=== PATIENT | female | born 1950 | race Caucasian/White ===

== ENCOUNTER → 2018-05-04 | Day surgery (SDC) | payer MEDICARE, OTHER ==
[2018-05-03 12:17] LABS: BASOPHILS % 0.6 % (0.0-1.0); EOSINOPHILS # (AUTO) 0.2 (0.0-0.4); EOSINOPHILS % 2.4 % (0.0-6.0); HEMOGLOBIN 12.5 g/dL (12.0-16.0); LYMPHOCYTES # (AUTO) 2.8 (1.0-3.2); LYMPHOCYTES % 38.7 % (18.0-39.1); MEAN CORPUSCULAR HEMOGLOBIN 29.2 pg (28-32); MEAN CORPUSCULAR HGB CONC 32.9 g/dL (31-35); MEAN CORPUSCULAR VOLUME 88.8 fL (81-99); MONOCYTES # (AUTO) 0.4 (0.2-0.8); NEUTROPHILS # (AUTO) 3.8 (2.1-6.9); PLATELET COUNT 172 x10e3/uL (140-360); RED BLOOD COUNT 4.28 x10e6/uL (3.6-5.1); RED CELL DISTRIBUTION WIDTH 12.3 % (11.7-14.4)
[2018-05-03 13:58] LABS: ANION GAP 10.6 mmol/L (8-16); BLOOD UREA NITROGEN 16 mg/dL (7-26); BUN/CREATININE RATIO 23 (6-25); CALCIUM 9.5 mg/dL (8.4-10.2); CARBON DIOXIDE 30 mmol/L (22-29); CHLORIDE 104 mmol/L (98-107); CREATININE, SERUM 0.71 mg/dL (0.57-1.11); EST GLOMERULAR FILTRATION RATE > 60 ML/MIN (60-); GLUCOSE 95 mg/dL (74-118); POTASSIUM 3.6 mmol/L (3.5-5.1); SODIUM 141 mmol/L (136-145)
--- NOTE | 2018-05-03 14:50 | Diagnostic Imaging Report ---
EXAM: CHEST 2 VIEWS, PA and lateral DATE: 05/03/2018Time stamp on exam: 12:19 PM INDICATION: Preoperative COMPARISON: None FINDINGS: LINES/TUBES: None LUNGS: No consolidations or edema. PLEURA: No effusions or pneumothorax. HEART AND MEDIASTINUM: Normal size and contour. BONES AND SOFT TISSUES: No acute findings. IMPRESSION: No acute thoracic abnormality. Signed by: Dr. Vince Holbrook DO on 05/03/2018 2:47 PM
[~2018-05-04] MED LIST: ASPIRIN LOW-STR81 MG PO; BACITRACIN 50,000 UNIT VIAL ONE; BENAZEPRIL HCL10 MG PO; BUPIVACAINE HCL 0.5% INJ 30 ML VIAL INJ ONE; CEFAZOLIN SOD 1 GM/NS 50ML 50 ML IV ONE; COQ-10; DEXAMETHASONE SOD PHOS INJ 4 MG/ML VIAL ONE; KETOROLAC TROMETHAMINE 30 MG/ML VIAL ONE; LEVOTHYROXINE50 MCG PO; LIDOCAINE HCL 2% LOCAL INJ 5 ML SDV VIAL INJ ONE; LYRICA75 MG PO; MIDAZOLAM HCL 2 MG/2 ML VIAL ONE; ONDANSETRON HCL INJ 2MG/ML 2ML 2 MG/ML VIAL ONE; PROPOFOL IV EMULSION 10 MG/ML 20 ML VIAL ONE; SEVOFLURANE INHAL SOLN 250 ML PEN BTL ONE; VITAMIN D400 UNIT PO; VITAMIN E400 UNI1 PO; Z.0.LEVOTHYROXINE125 PO; Z.0.LUNESTA3 MG PO; Z.0.PRAVASTATIN SOD8 PO; [UNRECOGNIZED DRUG - OTHER]
--- OUTSIDE RECORDS SUMMARY | 2018-05-04 05:08 | XMS REPORT | Clinical Summary ---
Author Author [employer] Organization [employer] Address Unknown Phone Unavailable Care Team Providers Care Handicapper [employer]ness [employer] Name Role Phone Vipul Valentin MD PCP Allergies Comments Active Allergy Reactions Severity Noted Date Diarrhea' Amoxicillin 08/05/2016 Codeine Anaphylaxis High 03/19/2016 Nausea / vomiting Meperidine GI 03/19/2016 Intolerance Cant remember reaction Hydromorphone 08/05/2016 Itching Tramadol 08/05/2016 Nausea / vomiting Hydrocodone-Acetaminophen GI 03/19/2016 Intolerance Medications End Date Status Medication Sig Dispensed Refills Start Date Active pregabalin (LYRICA) 50 MG Take 50 mg by 0 capsule mouth nightly. 3 capsules Active benazepril-hydrochlorothi Take 0.5 0 azide (LOTENSIN HCT) tablets by 20-25 mg per tablet mouth daily. 1/2 tab Active levothyroxine (SYNTHROID, Take 100 mcg 0 LEVOXYL) 100 mcg tablet by mouth daily. Active pravastatin (PRAVACHOL) Take 40 mg by 0 40 MG tablet mouth nightly. Active aspirin (ECOTRIN) 81 MG Take 81 mg by 0 enteric coated tablet mouth nightly. Active vitamin E 400 UNIT Take 400 0 capsule Units by mouth nightly. Active biotin 10,000 mcg capsule Take by mouth 0 nightly. Active cholecalciferol, vitamin Take 1,000 0 D3, (VITAMIN D3) 1,000 Units by unit capsule mouth nightly. 11/15/2017 sulfamethoxazole-trimetho Take 1 tablet 14 tablet 0 prim (BACTRIM DS) 800-160 by mouth 2 8 mg per tablet (two) times a day for 7 days. Active Problems Not on file Encounters Care Team Description Date Type Specialty Aydin Barnard MD Paronychia of fifth toe of left foot (Primary Dx); Cellulitis of foot, left; Closed fracture of phalanx of left fifth toe, sequela 11/08/2017 Emergency Emergency Medicine after 05/03/2017 Social History Date Tobacco Use Types Packs/Day Years Used Never Smoker Smokeless Tobacco: Never Used Alcohol Use Drinks/Week oz/Week Comments No Sex Assigned at Date Recorded Not on file Industry Job Start Date Occupation Not on file Not on file Not on file Travel End Travel History Travel Start No recent travel history available. Last Filed Vital Signs Time Taken Vital Sign Reading 11/08/2017 11:58 AM CDT Blood Pressure 110/61 11/08/2017 11:58 AM CDT Pulse 72 11/08/2017 11:58 AM CDT Temperature 37.2 C (99 F) 11/08/2017 11:58 AM CDT Respiratory Rate 18 11/08/2017 11:58 AM CDT Oxygen Saturation 96% - Inhaled Oxygen - Concentration 11/08/2017 10:03 AM CDT Weight 81.4 kg (179 lb 8 oz) 11/08/2017 10:03 AM CDT Height 165.1 cm (5' 5") 11/08/2017 10:03 AM CDT Body Mass Index 29.87 Plan of Treatment Health Maintenance Due Date Last Done Comments BREAST CANCER SCREENING 2001 COLON CANCER SCREENING 2001 SHINGLES VACCINES (#1) 2001 65+ PNEUMOCOCCAL VACCINE 2016 09/25/2016 (2 of 2 - PPSV23) PNEUMOCOCCAL 2016 POLYSACCHARIDE VACCINE AGE 65 AND OVER INFLUENZA VACCINE 09/23/2017 11/20/2016, 11/01/2015, 11/17/2014 Procedures Comments Procedure Name Priority Date/Time Associated Diagnosis [place] DRAIN SKIN ABSCESS Routine 11/08/2017 SIMPLE 10:21 AM CDT after 05/03/2017 Results * INCISION AND DRAINAGE (11/08/2017 10:21 AM CDT) Narrative Performed At Aydin Barnard MD 11/08/2017 11:55 AM I&D/Aspiration/Amputation Performed by: AYDIN BARNARD Authorized by: AYDIN BARNARD Consent: Consent obtained:Verbal Consent given by:Patient Risks discussed:Bleeding, incomplete drainage and pain Location: Type:Abscess Location:Lower extremity Lower extremity location:L little toe Pre-procedure details: Skin preparation:Betadine Anesthesia (see MAR for exact dosages): Anesthesia method:Local infiltration Local anesthetic:Lidocaine 1% w/o epi Procedure details: Complexity:Simple Incision types:Stab incision Scalpel blade:11 Drainage:Purulent Drainage amount:Moderate Packing materials:None Post-procedure details: Patient tolerance of procedure:Tolerated well, no immediate complications Comments: Incision at cuticle with moderate amount of pus expressed. after 05/03/2017 Insurance Payer Benefit Subscriber ID Type Phone Address Plan / Group xxxxxxxxxxx FOR LIFE MEDICARE MEDICARE xxxxxxxxxx Medicare [place], [place] PART A AND B Advance Directives Patient has advance care planning documents on file. For more information, roel morales contact: Lars Carl [address] [place] [address]
--- OUTSIDE RECORDS SUMMARY | 2018-05-04 05:08 | XMS REPORT | Summary of Care ---
Author Organization Unknown Address Unknown Phone Unavailable Care Team Providers Care Spa Experience Coordinator Name Role Phone Kandi Valentin PCP Encounter [facility]) [id number] Date(s): 09/21/13 - 09/21/13 [facility] Outpatient Imaging [address] Discharge Disposition: Home Physician Attending: Jacinta Valentin MD Reason for Visit V76.12 - SCREEN MAMMOGRA Problem List No data available for this section Allergies, Adverse Reactions, Alerts Substance Reaction Severity Status acetaminophen-codeine Demerol Hydrochloride Injection Active Dilaudid Hydrochloride Ampules Allergy Unverified ALL PAIN MEDS Active Medications No data available for this section Medications Administered During Your Visit No data available for this section Immunizations No data available for this section Social History Social History Type Response
--- OUTSIDE RECORDS SUMMARY | 2018-05-04 05:08 | XMS REPORT | CCD ---
Author Author Auto Generated Organization [facility] Outpatient [facility] [place] Address Unknown Phone Unavailable Care Team Providers Care Track Laying Machine Operator Name Role Phone EVELIA Valentin CP Kandi Valentin PP Allergies, Adverse Reactions, Alerts Substance Reaction Status acetaminophen-codeine Demerol Hydrochloride Injection Active Dilaudid Hydrochloride Ampules Allergy Unverified ALL PAIN MEDS Active
--- OUTSIDE RECORDS SUMMARY | 2018-05-04 05:08 | XMS REPORT ---
Author [facility] Address Unknown Phone Unavailable Care Team Providers Care Drug Abuse Program Coordinator Name Role Phone Kandi DIAZ Unavailable Unavailable Problems This patient has no known problems. Allergies, Adverse Reactions, Alerts This patient has no known allergies or adverse reactions. Medications This patient has no known medications. Results Test Description Test Time Test Comments Text Results Atomic Results Result Comments CHEST 2 VIEWS 2018-05-03 14:46:00 [facility] [address] [place] [address] Patient Name: GERRI DORAN MR #: [id number] : 1950 Age/Sex: 68/F Req #: [id number] Adm Physician: Ordered by: MANDO DIAZ DPM Report #: [id number] Location: OR Room/Bed: Procedure: [id number] DX/CHEST 2 VIEWS Exam Date: 05/03/18 Exam Time: 1215 REPORT STATUS: Signed EXAM: CHEST 2 VIEWS, PA and lateral DATE: 05/03/2018Time stamp on exam: 12:19 PM INDICATION: Preoperative COMPARISON: None FINDINGS: LINES/TUBES: None LUNGS: No consolidations or edema. PLEURA: No effusions or pneumothorax. HEART AND MEDIASTINUM: Normal size and contour. BONES AND SOFT TISSUES: No acute findings. IMPRESSION: No acute thoracic abnormality. Signed by: Dr. Andriy Holbrook DO on 05/03/2018 2:47 PM Dictated By: ANDRIY HOLBROOK DO 1447 Transcribed By: CHELY on 05/03/18 1447 COPY TO: MANDO DIAZ DPM
--- OUTSIDE RECORDS SUMMARY | 2018-05-04 05:08 | XMS REPORT | Continuity of Care Document ---
Author Author [facility] Address Unknown Phone Unavailable Problems Problem Status Onset Date Classification Date Reported Comments Source Z12.31 - ENCNTR SCREEN MAMMOGRAM FOR MA Active 03/10/2017 ETHAN Kelley Medications Medication Details Route Status Patient Instructions Ordering Provider Order Date Source Allergies, Adverse Reactions, Alerts Substance Category Reaction Severity Reaction type Status Date Reported Comments Source acetaminophen-codeine Assertion Demerol Hydrochloride Injection, Dilaudid Hydrochloride Ampules Drug allergy Active [facility] [place] Allergy Unverified Assertion ALL PAIN MEDS Drug allergy Active [facility] [place] Immunizations Immunization Date Given Site Status Last Updated Comments Source Results Order Name Results Value Reference Range Date Interpretation Comments Source Breast Mammo Scrn SAMEER w joni incl CAD MA Breast Mammo Scrn SAMEER w joni incl CAD CT BILATERAL DIGITAL SCREENING MAMMOGRAM 3D/2D WITH CAD: 03/16/2017 CLINICAL: /Routine. Current study was evaluated with a Computer Aided Detection (CAD) system. COMPARISON:Comparison is made to exams dated: 09/21/2013 mammogram, 08/17/2012 mammogram - [facility], 03/11/2011 mammogram - [facility], and 03/01/2009 mammogram - [facility]. TECHNIQUE: Digital Breast Tomosynthesis was performed and utilized for Interpretation. Current study was also evaluated with a Computer Aided Detection (CAD) system. FINDINGS: There are scattered fibroglandular densities in both breasts. There are benign calcifications in both breasts. No significant masses, calcifications, or other findings are seen in either breast. There has been no significant interval change. IMPRESSION: BENIGN RECOMMENDATION:There is no mammographic evidence of malignancy. A 1 year screening mammogram is recommended.(03/17/2018) This exam was interpreted at [id number] for [place] 15. Professional services are provided by the [facility] Division of Diagnostic Imaging. Xena Sanabria M.D., ms/evelia:03/16/2017 12:41:35 Hvac Mechanic(s): Valeria Marquez [place] letter sent: BI-RADS 1/2 Mammogram BI-RADS: 2 Benign 03/16/2017 - - Read by: Xena Sanabria MD Dictated Date/time: 03/16/17 12:41 Electronically Signed by: Xena Sanabria MD 03/16/17 12:41 FINAL REPORT [facility] Bone Density DXA [employer] MA Bone Density DXA [employer] MA BONE DENSITY ASSESSMENT: 03/16/2017 CLINICAL DATA: Post menopausal and clinical risk for osteoporosis. Z78.0 asymptomatic postmenopausal state. /Z78.0 Asymptomatic Menopausal State RISK FACTORS: race. FINDINGS: Bone density evaluation was performed 03/16/2017 on the right femur neck using a Hologic unit. The BMD average for the exam is 0.601 g/cm2. The T-score is -2.20 and the Z-score is -0.70. This matches the World Health Organization's criteria for osteopenia and places the patient at a medium risk for fracture. An additional bone density evaluation was performed 03/16/2017 on the left femur neck using a Hologic unit. The BMD average for the exam is 0.631 g/cm2. The T- score is -2.00 and the Z-score is -0.40. This matches the World Health Organization's criteria for osteopenia and places the patient at a medium risk for fracture. An additional bone density evaluation was performed 03/16/2017 on the right total femur area using a Hologic unit. The BMD average for the exam is 0.816 g/cm2. The T-score is -1.00 and the Z-score is 0.20. This matches the World Health Organization's criteria for normal bone density and places the patient within normal limits of fracture risk. An additional bone density evaluation was performed 03/16/2017 on the left total femur area using a Hologic unit. The BMD average for the exam is 0.775 g/cm2. The T-score is -1.40 and the Z-score is -0.10. This matches the World Health Organization's criteria for osteopenia and places the patient at a medium risk for fracture. An additional bone density evaluation was performed 03/16/2017 on the AP L1-L4 region of spine using a Hologic unit. The BMD average for the exam is 0.895 g/cm2. The T-score is -1.40 and the Z-score is 0.40. This matches the World Health Organization's criteria for osteopenia and places the patient at a medium risk for fracture. FRAX 10 year probability of major osteoporotic fracture is 11% and hip fracture is 1.8%. IMPRESSION: OSTEOPENIA Patient is at medium risk for fracture. Patient consult w/primary care provider is recommended. This exam was interpreted at [id number] for JUAN LUIS [place] 15. Xena Sanabria M.D. ms/penrad:03/16/2017 12:26:03 Hvac Mechanic(s): Valeria Marquez 03/16/2017 - - Read by: Xena Sanabria MD Dictated Date/time: 03/16/17 12:26 Electronically Signed by: Xena Sanabria MD 03/16/17 12:26 FINAL REPORT [facility] [place] Digital Mammo Screening Sameer MA Digital Mammo Screening Sameer MA - DIGITAL MAMMO SCREENING SAMEER MA BILATERAL DIGITAL SCREENING MAMMOGRAM WITH CAD: 09/21/2013 CLINICAL: Routine. Current study was evaluated with a Computer Aided Detection (CAD) system. Comparison is made to exams dated: 08/17/2012 mammogram - [facility], 03/11/2011 mammogram - [facility], 03/01/2009 mammogram - [facility] and 04/29/2006 mammogram - [facility]. The tissue of both breasts is heterogeneously dense, which could obscure detection of small masses. There are benign calcifications and a density in both breasts. No significant masses, calcifications, or other findings are seen in either breast. There has been no significant interval change. IMPRESSION: BENIGN There is no mammographic evidence of malignancy. A screening mammogram in one year is recommended. Ashanti Beck M.D. ap/penrad:09/22/2013 11:16:26 Hvac Mechanic: [facility] This exam was dictated and interpreted by [id number] for [facility]. letter sent: Normal exam Mammogram BI-RADS: 2 Benign 09/21/2013 - - Read by: Ashanti Beck MD Dictated Date/time: 09/22/13 11:16 Electronically Signed by: Ashanti Beck MD 09/22/13 11:16 FINAL REPORT ETHAN [facility] Digital Mammo Screening Sameer MA Digital Mammo Screening Sameer MA - DIGITAL MAMMO SCREENING SAMEER MA BILATERAL DIGITAL SCREENING MAMMOGRAM WITH CAD: 08/17/2012 CLINICAL: Routine. Current study was evaluated with a Computer Aided Detection (CAD) system. Comparison is made to exams dated: 03/11/2011 mammogram - [facility], 03/01/2009 mammogram - [facility] and 04/29/2006 mammogram - [facility]. There are scattered fibroglandular elements in both breasts that could obscure a lesion on mammography. There are benign calcifications in both breasts. There also is a benign density in the right breast. No significant masses, calcifications, or other findings are seen in either breast. There has been no significant interval change. IMPRESSION: BENIGN There is no mammographic evidence of malignancy. A screening mammogram in one year is recommended. SUMMARY: SL: 15. Olivia ragsdale/evelia:08/20/2012 11:23:25 Hvac Mechanic: Essence Cantrell [facility] letter sent: Normal exam Mammogram BI-RADS: 2 Benign 08/17/2012 - - Read by: Olivia Garnica Dictated Date/time: 08/20/12 11:23 Electronically Signed by: Olivia Garnica MD 08/20/12 11:23 FINAL REPORT ROSENDO Kelley Vital Signs Vital Sign Value Date Comments Source Encounters Location Location Details Encounter Type Encounter Number Reason For Visit Attending Provider ADM Date DC Date Status Source [facility] Outpatient [facility] [place] [facility] [id number] Jacinta Valentin 09/21/2013 09/22/2013 ROSENDO Kelley Procedures Procedure Code Date Perfomer Comments Source
--- OUTSIDE RECORDS SUMMARY | 2018-05-04 05:09 | XMS REPORT ---
Author Organization Unknown Address [address] [place] [address] Phone [phone] Care Team Providers Care Tire Worker Name Role Phone CAYLA BOWIE 104 [phone] JOSE PARIS 119 [phone] Allergies Code Code System Name Reaction Severity Status Onset 2670 RxNorm Codeine Rash Active 08/09/2015 523723 RxNorm Demerol Rash Active 08/09/2015 586737 RxNorm Dilaudid Rash Active 08/09/2015 Hydrocodone Bitartrate Rash Active 08/09/2015 4337 RxNorm Fentanyl Itching Active 06/03/2016 Notes: Pain meds Medications Name Status Start Date Stop Date amlodipine 5 mg tablet Completed 12/31/2015 amoxicillin 500 mg capsule Completed 03/24/2016 amoxicillin 875 mg-potassium clavulanate 125 mg tablet Completed 03/24/2016 Aspir-81 Take 0.5 tablets every day Active Not available azithromycin 250 mg tablet Completed 05/13/2017 mpalxcwfagcxrij-jenbaaitazbjtob-DK 2 mg-30 mg-10 mg/5 mL syrup Completed 03/24/2016 ciprofloxacin 500 mg tablet Completed 03/24/2016 clarithromycin 500 mg tablet Completed 03/24/2016 clindamycin HCl 300 mg capsule Completed 09/25/2016 clotrimazole 1 % topical cream Completed 03/24/2016 Clotrimazole-3 2 % vaginal cream Insert 1 applicatorful every day by vaginal route for 3 days. Completed 06/24/2016 dexamethasone 4 mg/mL injection solution Take 1 mL by injection route. Completed 05/13/2017 Durezol 0.05 % eye drops Completed 06/24/2016 eszopiclone 2 mg tablet Take 1 tablet every day at bedtime as needed for insomnia Active Not available eszopiclone 3 mg tablet Completed 09/25/2016 fluconazole 100 mg tablet Completed 12/31/2015 fluconazole 150 mg tablet Completed 06/05/2016 flunisolide 25 mcg (0.025 %) nasal spray Completed 03/24/2016 fluticasone 50 mcg/actuation nasal spray,suspension Active Not available gabapentin 600 mg tablet Completed 12/31/2015 Kenalog 40 mg/mL suspension for injection Take 1 mL by injection route. Completed 05/13/2017 ketoconazole 2 % topical cream Active Not available ketorolac 0.5 % eye drops Completed 06/24/2016 ketorolac 10 mg tablet Completed 09/25/2016 levothyroxine 100 mcg tablet Active Not available levothyroxine 125 mcg tablet Completed 09/25/2016 lidocaine (PF) 10 mg/mL (1 %) injection solution 1 cc usedd for local infiltration for wart destruciton. Completed 02/06/2017 Lotensin HCT 20 mg-25 mg tablet Active Not available Lyrica 50 mg capsule Active Not available minoxidil 2.5 mg tablet Completed 12/31/2015 mometasone 50 mcg/actuation nasal spray Completed 09/25/2016 montelukast 10 mg tablet Completed 05/13/2017 neomycin 3.5 mg/g-polymyxin B 10,000 unit/g-dexameth 0.1 % eye oint Completed 06/24/2016 nitrofurantoin monohydrate/macrocrystals 100 mg capsule Completed 09/25/2016 omeprazole 20 mg capsule,delayed release Completed 03/24/2016 phenazopyridine 100 mg tablet Completed 12/31/2015 phenazopyridine 200 mg tablet Completed 11/20/2016 pravastatin 40 mg tablet Active Not available prednisone 10 mg tablet Completed 03/24/2016 sulfamethoxazole 800 mg-trimethoprim 160 mg tablet Completed 11/20/2016 Suprep Bowel Prep Kit 17.5 gram-3.13 gram-1.6 gram oral solution Completed 12/31/2015 tramadol 50 mg tablet Completed 09/25/2016 trazodone 50 mg tablet Completed 09/25/2016 valacyclovir 1 gram tablet TAKE 1 TABLET TWICE A DAY FOR 5 DAYS Active Not available Zylet 0.3 %-0.5 % eye drops,suspension Completed 05/13/2017 Problems Name Status Onset Date Source Herpes Simplex Unknown 12/08/2014 History Hypothyroidism Active 12/08/2014 History Pure Hyperglyceridemia Unknown 12/08/2014 History Hypertensive Disorder Active 12/08/2014 History Disorder of Anal Region Unknown 12/08/2014 History Insomnia Active 04/05/2015 History Thyroid Nodule Active 03/29/2016 Mixed Hyperlipidemia Active 05/13/2017 Idiopathic Peripheral Neuropathy Active 05/13/2017 Procedures Date Name Performed by 08/11/2016 Nasal Surgery Procedure Information not available Hysterectomy (Total) Information not available 02/12/2016 US, Neck Vipul Valentin [address] [place] [address] (Work [address]) 02/29/2016 US, Neck Vipul Valentin [address] [facility] [address] [place] [address] (Work Place) 09/25/2016 Bone Density, Dual Photon Absorptiometry [facility] ([facility]) [address] [place] [address] (Work Place) 09/25/2016 MAMMO, Screening, Digital, Bilateral [facility] ([facility]) [address] [place] [address] (Work Place) 02/06/2017 MAMMO, Screening, Bilateral [facility] ([facility]) [address] [place] [address] (Work Place) 02/06/2017 Bone Density [facility] ([facility]) [address] [place] [address] (Work Place) 03/12/2017 Electrocardiogram [facility] [address] [facility] [address] [place] [address] (Work Place) 03/12/2017 Bone Density, Dual Photon Absorptiometry [facility] [address] [address] [place] [address] (Work Place) 03/12/2017 MAMMO, Screening, Bilateral [facility] [address] [address] [place] [address] (Work Place) Notes: Patient indicated no previous surgeries on (04/23/2017) Lab Results Date Name Specimen Result Interpretation Description Value Range Status Address 11/10/2016 Culture, Urine ABNORMAL Culture, Urine, Routine see note [facility]: [address] [address], [place] 09/25/2016 Hepatitis C Virus RNA, Quant, PCR, Serum or Plasma Normal Hepatitis C Antibody non-reactive non-reactive [facility] [address] [facility] [facility] Signal to Cut-off 0.03 <1.00 Final [facility] [address] [facility] [facility] 09/25/2016 CBC W/ Auto Diff Wbc 6.90 x10*3/L 3.98-10.04 x10*3/L Final [facility] [address] [facility] [facility] Rbc 4.27 10*12/L 3.93-5.22 10*12/L Final [facility] [address] [facility] [facility] Hemoglobin 12.60 g/dL 11.20-15.70 g/dL Final [facility]: [address] [facility] [facility] Hematocrit 38.0 % 34.1-44.9 % Final [facility]: [address] [facility] [facility] Mcv 89.0 fL 80.0-100.0 fL Final [facility]: [address] [facility] [facility] Mch 29.5 pg 25.6-32.2 pg Final [facility]: [address] [facility] [facility] Mchc 33.2 g/dL 32.2-35.5 g/dL Final [facility]: [address] [facility] [facility] RDW-SD 38.8 fL 36.4-46.3 fL Final [facility]: [address] [facility] [facility] Platelet Count 189.0 k/uL 182.0-369.0 k/uL Final [facility]: [address] [facility] High Mpv 11.9 fL 7.5-11.5 fL Final [facility]: [address] [facility] [facility] Neut% 45.1 % 34.0-71.1 % Final [facility]: [address] [facility] [facility] Lymph% 45.9 % 19.3-51.7 % Final [facility]: [address] [facility] Mon% 6.5 % 4.7-12.5 % Final [facility]: [address] [place] [address] Eos% 1.9 % 0.7-5.8 % Final [facility]: [address] [place] [address] Baso% 0.6 % 0.1-1.2 % Final [facility]: [address] [place] Neut# 3.1 x10*3/L 1.6-6.1 x10*3/L Final [facility]: [address] [place] [address] Lymph# 3.2 x10*3/L 1.2-3.7 x10*3/L Final [facility]: [address] [place] [address], [place] Mon# 0.5 x10*3/L 0.2-0.9 x10*3/L Final [facility]: [address] Eos# 0.13 x10*3/L 0.04-0.36 x10*3/L Final [facility]: [address] [place] [address] Baso# 0.04 x10*3/L 0.01-0.08 x10*3/L Final [facility]: [address] [place] [address] 09/25/2016 CMP, Serum or Plasma Alt 16 U/L 0-55 U/L Final [facility]: [address] Ast 18 U/L 5-34 U/L Final [facility]: [address] Bun 14.9 mg/dL 9.8-20.1 mg/dL Final [facility]: [address] Alk Phos 79 unit/L 40-150 unit/L Final [facility]: [address] High Glucose 101 mg/dL 70-99 mg/dL Final [facility]: [address] Albumin 4.1 g/dL 3.5-5.0 g/dL Final [facility]: [address] Creatinine 0.76 mg/dL 0.57-1.11 mg/dL Final [facility]: [address] eGFR Non- >60 mL/min/1.73m2 >60 mL/min/1.73m2 Final [facility]: [address] Total Bilirubin 0.4 mg/dL 0.2-1.2 mg/dL Final [facility]: [address] eGFR - >60 mL/min/1.73m2 >60 mL/min/1.73m2 Final [facility]: [address] [place] [address], [place] Sodium 145 mEq/L 136-145 mEq/L Final [facility]: [address] Potassium 3.9 mEq/L 3.5-5.1 mEq/L Final [facility]: [address] [address], [place] Chloride 105 mmol/L 98-107 mmol/L Final [facility]: [address] [address], [place] Total Protein 7.3 g/dL 6.4-8.3 g/dL Final [facility]: [address] Calcium 9.7 mg/dL 8.4-10.2 mg/dL Final [facility]: [address] Co2 30.8 mmol/L 23.0-31.0 mmol/L Final [facility]: [address] Anion Gap 9 calc Final [facility]: [address] 09/25/2016 Lipid Panel, Serum Hdl 54 mg/dL 40-60 mg/dL Final [facility]: [address] Triglyceride 102 mg/dL 0-149 mg/dL Final [facility]: [address] VLDL Calc. 20 mg/dL Final [facility]: [address] cholesterol/HDL Ratio 3 mg/dL Final [facility]: [address] non-HDL Cholesterol Calc. 94 mg/dL 0-160 mg/dL Final [facility]: [address] Cholesterol 148 mg/dL 0-199 mg/dL Final [facility]: [address] LDL Calc. 74 mg/dL 0-130 mg/dL Final [facility]: [address] 09/25/2016 T4, Total, Serum T4 Total 8.12 ug/dL 4.87-11.72 ug/dL Final [facility]: [address] [place] [address], [place] 09/25/2016 TSH, Serum or Plasma Tsh 0.586 uIU/mL 0.350-4.940 uIU/mL Final [facility]: [address] [place] [address], [place] 09/25/2016 Culture, Urine Culture, Urine, Routine see note Final [facility]: [address] 06/24/2016 CMP, Serum or Plasma Alt 16 U/L 0-55 U/L Final [facility]: [address] Ast 18 U/L 5-34 U/L Final [facility]: [address] Bun 18 mg/dL 10-20 mg/dL Final [facility]: [address] Alk Phos 84 unit/L 40-150 unit/L Final [facility]: [address] High Glucose 134 mg/dL 70-99 mg/dL Final [facility]: [address] Albumin 4.2 g/dL 3.5-5.0 g/dL Final [facility]: [address] Creatinine 0.77 mg/dL 0.57-1.11 mg/dL Final [facility]: [address] eGFR Non- >60 mL/min/1.73m2 >60 mL/min/1.73m2 Final [facility]: [address] Total Bilirubin 0.4 mg/dL 0.2-1.2 mg/dL Final [facility]: [address] eGFR - >60 mL/min/1.73m2 >60 mL/min/1.73m2 Final [facility]: [address] Sodium 144 mEq/L 136-145 mEq/L Final [facility]: [address] Potassium 4.9 mEq/L 3.5-5.1 mEq/L Final [facility]: [address] Chloride 106 mmol/L 98-107 mmol/L Final [facility]: [address] Total Protein 7.3 g/dL 6.4-8.3 g/dL Final [facility]: [address] Calcium 10.0 mg/dL 8.4-10.2 mg/dL Final [facility]: [address] Co2 28.3 mmol/L 23.0-31.0 mmol/L Final [facility]: [address] Anion Gap 10 calc Final [facility]: [address] [place] [address], [place] 06/24/2016 Lipid Panel, Serum Hdl 58 mg/dL 40-60 mg/dL Final [facility]: [address] Triglyceride 130 mg/dL 0-149 mg/dL Final [facility]: [address] VLDL Calc. 26 mg/dL Final [facility]: [address] cholesterol/HDL Ratio 3 mg/dL Final [facility]: [address] non-HDL Cholesterol Calc. 96 mg/dL 0-160 mg/dL Final [facility]: [address] Cholesterol 154 mg/dL 0-199 mg/dL Final [facility]: [address] LDL Calc. 70 mg/dL 0-130 mg/dL Final [facility]: [address] [place] [address], [place] 06/24/2016 T4, Total, Serum T4 Total 7.73 ug/dL 4.87-11.72 ug/dL Final [facility]: [address] 06/24/2016 TSH, Serum or Plasma Low Tsh 0.175 uIU/mL 0.350-4.940 uIU/mL Final [facility]: [address] [place] [address], [place] 05/13/2016 T4, Total, Serum Normal T4 (Thyroxine), Total 9.8 mcg/dL 4.5-12.0 mcg/dL Final [facility] Lab: [address] 05/13/2016 TSH, Serum or Plasma Low Tsh 0.11 mIU/L 0.40-4.50 mIU/L Final [facility] Lab: [address] 02/12/2016 H Pylori Urea Breath Test, Co2 Infrared ABNORMAL Helicobacter Pylori, Urea Breath Test detected not detected Final [facility] Lab: [address] [facility], [place] Rapid Flu (A+B) Type Flu a negative [facility]: [address], [place] Type Flu B negative [facility]: [address], [place] Electrocardiogram No observation recorded. [facility]: [address] [facility] [address], [place] Urinalysis, Dipstick Color Color light yellow [facility]: [address] [facility] [address], [place] Color Appearance clear [facility]: [address] [facility] [address], [place] Color Glucose negative [facility]: [address] [facility] [address], [place] Color Bilirubin negative [facility]: [address] [facility] [address] [place] Color Ketones trace [facility]: [address] [facility] [address] [place] Color Specific [place] 1.025 [facility]: [address] [facility] [address] [place] Color Blood moderate [facility]: [address] [facility] [address] [place] Color PH 6.0 [facility]: [address] [facility] [address] [place] Color Protein 30 [facility]: [address] [facility] [address] [place] Color Urobilinogen 2 [facility]: [address] [facility] [address], [place] Color Nitrites positive [facility]: [address] [facility] [address], [place] Color Leukocytes large [facility]: [address] [facility] [address], [place] Albumin:creatinine Ratio, Urine Type Urine Microlalbumin 10 mg/L [facility]: [address] [facility] [address], [place] Type Urine Creatinine 100 mg/dL [facility]: [address] [facility] [address], [place] Type A:C Ratio <30 mg/g (Normal) [facility]: [address] [facility] [address], [place] Urinalysis, Dipstick Color Color yellow [facility]: [address] [facility] [address], [place] Color Appearance clear [facility]: [address] [facility] [address], [place] Color Glucose negative [facility]: [address] [facility] [address], [place] Color Bilirubin negative [facility]: [address] [facility] [address], [place] Color Ketones negative [facility]: [address] [facility] [address], [place] Color Specific [place] 1.020 [facility]: [address] [facility] [address], [place] Color Blood negative [facility]: [address] [facility] [address], [place] Color PH 5.0 [facility]: [address] [facility] [address], [place] Color Protein negative [facility]: [address] [facility] [address], [place] Color Urobilinogen 1 [facility]: [address] [facility] [address], [place] Color Nitrites negative [facility]: [address] [facility] [address], [place] Color Leukocytes trace [facility]: [address] [facility] [address], [place] Past Encounters 05/13/2017 Primary Insomnia; Herpes Labialis; Mixed Hyperlipidemia; Hypothyroidism; Hypertensive Disorder; Idiopathic Peripheral Neuropathy Vipul Valentin MD: [address] [address], [place]. 04/23/2017 Bronchitis; Sinusitis; Generalized Aches and Pains Lissett Ingram MD: [address] [facility] [address] [address], Ph. 03/12/2017 Chest Pain; Postmenopausal State; Screening Mammography SIOBHAN Correa: [address] [address], [place]. 02/06/2017 Pure Hypercholesterolemia; Hypertensive Disorder; Hypothyroidism; Primary Insomnia; Mononeuropathy; Herpes Labialis; Allergic Rhinitis; Dermatophytosis; Screening Mammography; Screening for Osteoporosis SIOBHAN Correa: [address] [address], [place]. 11/20/2016 Pure Hypercholesterolemia; Hypothyroidism; Inflamed Seborrheic Keratosis; Primary Insomnia; Herpes Labialis; Immunization SIOBHAN Correa: [address] [facility], [address] [address], [place]. 11/10/2016 Dysuria; Acute Urinary Tract Infection JEF Parker: [address] [address], [place]. 09/29/2016 Verruca Vulgaris Vipul Valentin MD: [address] [place] [address], Ph. 09/25/2016 Adult Health Examination; Body Mass Index 25-29 - Overweight; Hypertensive Disorder; Pure Hypercholesterolemia; Pure Hyperglyceridemia; Hypothyroidism; Thyroid Nodule; Mononeuropathy; Primary Insomnia; Advance Directive Discussed with Patient; Screening for Malignant Neoplasm of Colon; Screening Mammography; Postmenopausal State; Immunization; Viral Screening; Increased Frequency of Urination SIOBHAN Correa: [address] [place] [address], Ph. 07/14/2016 Insomnia; Hypothyroidism SIOBHAN Correa: [address] [place] [address], Ph. 06/24/2016 Chest Pain; Hypertensive Disorder; Pure Hyperglyceridemia; Hypothyroidism JEF Parker: [address] [place] [address], Ph. 06/05/2016 Acute Frontal Sinusitis; Allergic Rhinitis SIOBHAN Correa: [address] [place] [address], Ph. 05/13/2016 Hypothyroidism; Thyroid Nodule; Allergic Rhinitis; Insomnia SIOBHAN Correa: [address] [place] [address], Ph. 03/31/2016 Candidiasis of Vagina; Insomnia SIOBHAN Correa: [address] [place] [address], Ph. 03/24/2016 Thyroid Nodule; Actinic Keratosis SIOBHAN Correa: [address] [place] [address], Ph. 02/27/2016 Mass of Neck; Mass of Soft Tissue Vipul Valentin MD: [address] [place] [address], Ph. 02/12/2016 Acute Left Otitis Media; Cough; Gastroesophageal Reflux Disease without Esophagitis; Mass of Soft Tissue [facility]: [address] [facility] [address], [place] [address], Ph. 12/31/2015 Insomnia Leeann EllingtonANDRE[facility]: [address] [facility], [facility] [address], [place] [address], Ph. Social History Smoking Status Never Smoker Vaccine List Vaccine Type influenza, high dose seasonal 11/20/20160.5 mL influenza, injectable, quadrivalent 11/01/2015 influenza, seasonal, injectable 11/17/2014 pneumococcal conjugate PCV 13 09/25/20160.5 mL Notes: 11/17/2014: Depo-Medrol (Methyprednisolone) (01/13/2014) Lidocaine 1% (01/13/2014) Plan of Care Patient Instructions steroid injection today use over the counter mucinex DM increase oral fluid intake, hand washing, warm salt water gargles Meds were sent to your pharmacy today, please call if any issues call/email if you are not feeling better within the next 1-2 weeks It was good to see you in the office today for your Medicare Annual Wellness Visit. You have been provided some information on healthy nutrition, including a diet rich in fruits and vegetables, minimizing simple carbohydrates, salt, and saturated fats. I want to encourage regular cardiovascular exercise such as walking at least 30 minutes daily, 5 times per week. Please remember to schedule any preventive health measures that we talked about today. You have also been provided education on fall prevention and community- based lifestyle interventions to help reduce health risks and promote healthy living in your [employer] folder. Screening Recommendations 1. Vaccines Pneumococcal: discussed today and information sent with patient in their [employer] health folder Influenza: discussed today and information sent with patient in their [place] [employer] health folder Shingles: discussed today and information sent with patient in their [place] [employer] health folder Tetanus: discussed today and information sent with patient in their [place] [facility] health folder 2. Mammography Screening: discussed today and information sent with patient in their [place] [facility] health folder 3. Colorectal cancer Screening Colonoscopy: discussed today and information sent with patient in their [place] [facility] health folder Fecal Occult Blood: discussed today and information sent with patient in their [employer] health folder 4. Bone Mass Measurement: discussed today 5. Pap test / Pelvic Exam Screening: discussed today 6. Eye Exam Screening: discussed today 7. Cholesterol Screening: discussed today 8. Diabetes Screening: discussed today Increase PO fluids. Complete all antibiotics as prescribed. Call or RTC for worsening of symptoms or no improvement in 2-3 days. Increase PO fluids. Complete all antibiotics as prescribed. Call or RTC for worsening of symptoms or no improvement in 2-3 days. Reminders Provider Appointments None recorded. Lab None recorded. Referral None recorded. Procedures None recorded. Surgeries None recorded. Imaging None recorded. Vitals 05/13/2017 03:45PM Est Patient Height Weight BMI Blood Pressure 5 ft 5.5 in 182 lbs 29.8 kg/m2 134/81 mm[Hg] 04/23/2017 12:00PM Est Patient Height Weight BMI Blood Pressure 5 ft 5.5 in 180.8 lbs 29.6 kg/m2 130/82 mm[Hg] 03/12/2017 11:00AM Work In Same Day Height Weight BMI Blood Pressure 5 ft 5.5 in 182.6 lbs 29.9 kg/m2 127/80 mm[Hg] 02/06/2017 01:15PM Est Patient Height Weight BMI Blood Pressure 5 ft 5.5 in 183.6 lbs 30.1 kg/m2 119/76 mm[Hg] 11/20/2016 01:15PM Est Patient Height Weight BMI Blood Pressure 5 ft 5.5 in 183.6 lbs 30.1 kg/m2 117/72 mm[Hg] 11/10/2016 02:30PM Est Patient Height Weight BMI Blood Pressure 5 ft 5.5 in 183 lbs 30 kg/m2 120/77 mm[Hg] 09/29/2016 04:15PM Est Patient Height Weight BMI Blood Pressure 5 ft 5.5 in 185 lbs 30.3 kg/m2 119/71 mm[Hg] 09/25/2016 02:00PM AWV Height Weight BMI Blood Pressure 5 ft 6 in 184 lbs 29.7 kg/m2 127/86 mm[Hg] 07/14/2016 02:30PM Est Patient Height Weight BMI Blood Pressure 5 ft 6 in 181.2 lbs 29.2 kg/m2 126/76 mm[Hg] 06/24/2016 03:00PM Est Patient Height Weight BMI Blood Pressure 5 ft 6 in 182 lbs 29.4 kg/m2 152/81 mm[Hg] 06/05/2016 02:30PM Est Patient Height Weight BMI Blood Pressure 5 ft 6 in 182.4 lbs 29.4 kg/m2 133/76 mm[Hg] 05/13/2016 02:45PM Est Patient Height Weight BMI Blood Pressure 5 ft 6 in 179 lbs 28.9 kg/m2 134/84 mm[Hg] 03/31/2016 01:45PM [facility] Height Weight BMI Blood Pressure 5 ft 6 in 180 lbs 29.1 kg/m2 125/79 mm[Hg] 03/24/2016 01:45PM Est Patient Height Weight BMI Blood Pressure 5 ft 6 in 182.8 lbs 29.5 kg/m2 121/67 mm[Hg] 02/12/2016 09:15AM Est Patient Height Weight BMI Blood Pressure 5 ft 6 in 178.2 lbs 28.8 kg/m2 120/72 mm[Hg] 12/31/2015 01:30PM Est Patient Height Weight BMI Blood Pressure 5 ft 6 in 181.2 lbs 29.2 kg/m2 127/75 mm[Hg] 08/09/2015 Height Weight BMI Blood Pressure 5 ft 6 in 180.8 lbs 29.18 kg/m2 119/67 mm[Hg] 07/16/2015 Height Weight BMI Blood Pressure 5 ft 6 in 180 lbs 29.05 kg/m2 122/74 mm[Hg] 07/12/2015 Height Weight BMI Blood Pressure 5 ft 6 in 181 lbs 29.21 kg/m2 119/65 mm[Hg] 04/19/2015 Height Weight BMI Blood Pressure 5 ft 6 in 180.8 lbs 29.18 kg/m2 121/68 mm[Hg] 04/05/2015 Height Weight BMI Blood Pressure 5 ft 6 in 179.2 lbs 28.92 kg/m2 110/70 mm[Hg] 03/07/2015 Height Weight BMI Blood Pressure 5 ft 6 in 183.6 lbs 29.63 kg/m2 123/79 mm[Hg] 02/05/2015 Height Weight BMI Blood Pressure 5 ft 6 in 182.4 lbs 29.44 kg/m2 130/76 mm[Hg] 01/12/2015 Height Weight BMI Blood Pressure 5 ft 6 in 183 lbs 29.53 kg/m2 118/70 mm[Hg] 12/08/2014 Height Weight BMI Blood Pressure 5 ft 6 in 179.4 lbs 28.95 kg/m2 128/70 mm[Hg] 12/01/2014 Height Weight Blood Pressure 5 ft 6 in 179.8 lbs 122/74 mm[Hg] 12/01/2014 BMI 29.02 kg/m2 11/17/2014 Height Weight BMI Blood Pressure 5 ft 6 in 180.4 lbs 29.11 kg/m2 126/68 mm[Hg] 09/13/2014 Height Weight BMI Blood Pressure 5 ft 6 in 180.6 lbs 29.15 kg/m2 124/71 mm[Hg] 08/03/2014 Height Weight BMI Blood Pressure 5 ft 6 in 181.8 lbs 29.34 kg/m2 116/70 mm[Hg] 06/19/2014 Height Weight BMI Blood Pressure 5 ft 6 in 181.4 lbs 29.28 kg/m2 142/70 mm[Hg] 06/14/2014 Height Weight BMI Blood Pressure 5 ft 6 in 181 lbs 29.21 kg/m2 118/80 mm[Hg] 05/22/2014 Height Weight BMI Blood Pressure 5 ft 6 in 179 lbs 28.89 kg/m2 140/80 mm[Hg] 05/04/2014 Height Weight BMI Blood Pressure 5 ft 6 in 187.2 lbs 30.21 kg/m2 120/70 mm[Hg] 03/17/2014 Height Weight BMI Blood Pressure 5 ft 6 in 185 lbs 29.86 kg/m2 130/70 mm[Hg] 03/09/2014 Height BMI 5 ft 6 in 29.82 kg/m2 03/09/2014 Weight Blood Pressure 184.8 lbs 120/80 mm[Hg] 03/06/2014 Height Weight BMI Blood Pressure 5 ft 6 in 181.2 lbs 29.24 kg/m2 120/70 mm[Hg] 01/24/2014 Blood Pressure 124/80 mm[Hg] 01/24/2014 Height Weight BMI 5 ft 6 in 181.6 lbs 29.31 kg/m2 01/13/2014 Height Weight BMI Blood Pressure 5 ft 6 in 184 lbs 29.70 kg/m2 120/80 mm[Hg] 11/25/2013 Height Weight BMI Blood Pressure 5 ft 6 in 185.9 lbs 30.00 kg/m2 120/80 mm[Hg] 11/08/2013 Height Weight BMI Blood Pressure 5 ft 6 in 183.8 lbs 29.66 kg/m2 120/75 mm[Hg] 10/03/2013 Height Weight 5 ft 6 in 182.8 lbs 09/12/2013 Height Weight 5 ft 6 in 183.2 lbs 06/24/2013 Height Weight 5 ft 6 in 184.4 lbs 06/21/2013 Height Weight 5 ft 6 in 182 lbs 06/06/2013 Height Weight 5 ft 6 in 184 lbs 05/31/2013 Height Weight 5 ft 6 in 185.4 lbs 12/13/2012 Height Weight 5 ft 6 in 186.6 lbs 11/17/2012 Height Weight 5 ft 6 in 182.8 lbs 09/27/2012 Height Weight 5 ft 6 in 184.6 lbs 06/07/2012 Height Weight 5 ft 6 in 180.4 lbs 05/31/2012 Height Weight 5 ft 6 in 182.8 lbs 04/27/2012 Height Weight 5 ft 6 in 183.2 lbs 03/05/2012 Height Weight 5 ft 6 in 182.6 lbs 10/23/2011 Height Weight 5 ft 6 in 177.6 lbs 09/15/2011 Height Weight 5 ft 6 in 177.6 lbs 09/02/2011 Height Weight 5 ft 6 in 182.4 lbs 08/19/2011 Height Weight 5 ft 6 in 175 lbs 07/31/2011 Height Weight 5 ft 6 in 178.2 lbs 06/09/2011 Height Weight 5 ft 6 in 177.6 lbs 04/22/2011 Height Weight 5 ft 6 in 182.8 lbs 03/28/2011 Height Weight 5 ft 6 in 180.4 lbs 12/19/2010 Height Weight 5 ft 6 in 180.4 lbs 10/30/2010 Height Weight 5 ft 6 in 182.4 lbs 06/26/2010 Height 5 ft 6 in 06/26/2010 Weight 178.2 lbs 05/24/2010 Height Weight 5 ft 6 in 178 lbs 03/01/2010 Height Weight 5 ft 6 in 166.8 lbs 02/01/2010 Height Weight 5 ft 6 in 173.4 lbs 08/21/2009 Weight 169 lbs 08/02/2009 Weight 168.4 lbs 03/01/2009 Weight 179 lbs 11/21/2008 Weight 170 lbs 11/02/2008 Weight 166 lbs 08/01/2008 Height 5 ft 6 in 08/01/2008 Weight 165 lbs 03/17/2008 Weight 184 lbs 2008 Weight 182.5 lbs 03/10/2008 Weight 182.8 lbs 01/25/2008 Weight 173.1 lbs 12/31/2007 Weight 173.4 lbs 10/15/2007 Weight 176 lbs 05/20/2007 Weight 185.2 lbs 10/29/2006 Weight 182.7 lbs 08/10/2006 Weight 172.6 lbs 04/24/2006 Height Weight 5 ft 6 in 180 lbs 02/27/2006 Weight 193.7 lbs 09/16/2005 Height Weight 5 ft 6 in 76 lbs 08/22/2005 Height Weight 5 ft 6 in 179 lbs 05/30/2005 Height Weight 5 ft 6 in 175 lbs 05/12/2005 Height Weight 5 ft 6 in 174 lbs 10/18/2004 Height Weight 5 ft 6 in 178 lbs 07/25/2004 Height Weight 5 ft 6 in 174 lbs 04/22/2004 Height Weight 5 ft 6 in 171 lbs 11/08/2003 Weight 173 lbs
[2018-05-04 09:00] VITALS: BP 115/59
--- NOTE | 2018-05-04 16:15 | Operative Report ---
DATE OF PROCEDURE: 05/04/2018 SURGEON: Diana Harrington DPM PREOPERATIVE DIAGNOSIS: Left hallux rigidus. POSTOPERATIVE DIAGNOSIS: Left hallux rigidus. PLANNED PROCEDURE: Left Doyle bunionectomy with first metatarsophalangeal joint implant, left. ANESTHESIA: General with a postoperative block consisting of 20 mL of 0.25% Marcaine plain. HEMOSTASIS: Pneumatic thigh tourniquet set at 350 mmHg for a total time of approximately 40 minutes. MATERIALS: 1 size 2 bone silastic implant, 2-0 Vicryl, 3-0 Vicryl, 4-0 Monocryl. ESTIMATED BLOOD LOSS: Less than 10 mL. PATHOLOGY: None. PROCEDURE NOTE: The patient was seen in the preoperative waiting room, where the correct procedure and side was identified. The patient was brought to the operating room, placed on the operating table in supine position. General anesthesia was initiated. At this time, a well-padded pneumatic tourniquet was placed about the patient's left thigh. The left foot, ankle, and leg were then scrubbed, prepped and draped in the usual aseptic manner. The right foot, ankle, and leg were exsanguinated with an Esmarch bandage and the pneumatic thigh tourniquet was inflated to 350 mmHg for a total time of approximately 40 minutes. Attention was directed to the dorsal medial aspect of the patient's left foot, where a large prominence was noted at the first metatarsophalangeal joint with less than 15 degrees of range of motion. At this point, a 6 cm curvilinear incision was made directly over the metatarsophalangeal joint. The incision was carried to the subcutaneous tissue it from deeper underling structures. All vital and neurovascular structures were identified, retracted medially and laterally and all bleeders were cauterized or ligated as deemed necessary. At this time, due to same incision, a full lateral release was performed consisting of the deep transverse metatarsal ligament, lateral collateral ligament as well as a fibular sesamoid ligament. At this time, a linear capsulotomy was made directly with the first metatarsophalangeal joint and was freed of all capsular ligaments attachments. The head of the metatarsal was easily identified and the articular cartilage distally was noted to have a significant amount of degeneration greater than 60%. The base of the proximal phalanx as well had significant amount of degeneration. At this time, utilizing McGlamry elevator, the sesamoid apparatus was freed from the metatarsophalangeal joint. Utilizing a sagittal saw, the medial eminence was resected as well as the dorsal eminence as well as portion of the lateral aspect of the first metatarsal. Next, the proximal 1/3rd of the base of the proximal phalanx was resected and passed off to the back table. The wound was then flushed with copious amounts of sterile saline. Utilizing manufacture protocol for a toe reference implant, the guidewire was placed and confirmed via intraoperative fluoroscopy to the head of the first metatarsal and the reamer was utilized to create the placement apparatus. The same protocol was used used for the proximal phalanx. The wound was then flushed with copious amounts of sterile saline. A sizer was used to determine the size of the implant. The implant was soaked in bacitracin mixed with sterile saline for approximately 2 minutes as well as the grommets. Per manufacture protocol, the grommets were placed and impacted in place. The size 2 implant was then placed and functioning in good alignment and was confirmed via intraoperative fluoroscopy. The wound was again flushed with copious amounts of sterile saline mixed with bacitracin. Capsule and deep tissue were reapproximated with 2-0 Vicryl, subcutaneous tissue with 3-0 Vicryl. The skin was closed using a running subcuticular suture with a 4-0 Monocryl. The incision site was then Sterri-Stripped with Mastisol. The incision site was then dressed with Adaptic, 4x4's, Kerlix, Abram wrap and a postoperative shoe. The patient tolerated the procedure and anesthesia well. The patient was transferred to the postoperative recovery unit with vital signs stable and vascular status intact. The patient was monitored there for a short period of time before being sent home with the following written and oral instructions: 1. Keep the dressing clean, dry, and intact. 2. The patient is to remain partial weightbearing for transfers only to the right heel. 3. The patient is to use knee scooter or crutches for long distances. 4. The patient should have a postoperative appointment scheduled approximately in 3 days. The patient was given the office number and instructed to contact us if any problems should arise. KEISHA Pedroza /[phone]
== END | disposition home or self-care (01) ==
LOC: OR 05:00
PROVIDERS: ATTEND Podiatrist Foot & Ankle Surgery
DX: M20.22 Hallux rigidus, left foot (principal); Z01.810 Encounter for preprocedural cardiovascular examination; Z01.812 Encounter for preprocedural laboratory examination; Z88.6 Allergy status to analgesic agent; Z88.5 Allergy status to narcotic agent; Z88.8 Allergy status to other drugs, medicaments and biological substances; I10 Essential (primary) hypertension; E78.00 Pure hypercholesterolemia, unspecified
CPT/HCPCS: 28291; 36415; 71046; 80048; 85025; 93005; C1713; J0690; J1100; J1885; J2001; J2250; J2405; J2704